=== PATIENT | male | born 1955 | race Caucasian/White ===

== ENCOUNTER 2017-06-21 11:29 | Emergency (ER) | payer OTHER ==
[2017-06-21 11:30] VITALS: BP 156/72; PULSE 82; RESP 16; TEMP 98.1; O2SAT 99
[2017-06-21] MEDS ORDERED: AMLO10TA2 PO (13:11)
[2017-06-21] MEDS ORDERED: [UNRECOGNIZED DRUG - OTHER] PO (13:11)
--- NOTE | 2017-06-21 15:19 | PD ---
HPI Chief Complaint: Musculoskeletal Complaint Time Seen by Provider: 13:03 Travel History International Travel<30 days: No Contact w/Intl Traveler<30days: No Traveled to known affect area: No History of Present Illness HPI The patient's 61 years old and arrives to the ER because his primary care office nursing staff advised him to do so. He was seen today by Dr. Olmos because he might have a pathologic fracture left humerus. He arrives with orders for PET scan, bone scan and CT of the chest abdomen pelvis to rule out metastatic disease. Patient reports constant pain in left humerus worse with range of motion, particularly at the left shoulder. He's had no fever. He reports generalized joint pain/musculoskeletal pain which is chronic and he believes might be related to rheumatoid disease however is unsure. He has no shortness of breath or chest pain. Allergies-Medications (Allergen,Severity, Reaction): Coded Allergies: No Known Allergies (Verified Allergy, Unknown, 06/21/17) Reported Meds & Prescriptions Reported Meds & Active Scripts Active Reported [Benzepine] 40 Mg PO DAILY Amlodipine (Amlodipine Besylate) 10 Mg Tab 10 Mg PO DAILY Review of Systems Except as stated in HPI: all other systems reviewed are Neg General / Constitutional: No: Fever Physical Exam Narrative GENERAL: 61-year-old male well-nourished well-developed SKIN: Warm and dry. HEAD: Atraumatic. Normocephalic. EYES: Pupils equal and round. No scleral icterus. No injection or drainage. ENT: No nasal bleeding or discharge. Mucous membranes pink and moist. NECK: Trachea midline. No JVD. CARDIOVASCULAR: Regular rate and rhythm. RESPIRATORY: No accessory muscle use. Clear to auscultation. Breath sounds equal bilaterally. GASTROINTESTINAL: Abdomen soft, non-tender, nondistended. Hepatic and splenic margins not palpable. MUSCULOSKELETAL: There is some atrophic changes the left upper extremity with amputation of the distal phalanges in keeping with history of scleroderma. NEUROLOGICAL: Awake and alert. No obvious cranial nerve deficits. Motor grossly within normal limits. Five out of 5 muscle strength in the arms and legs. Normal speech. PSYCHIATRIC: Appropriate mood and affect; insight and judgment normal. Data Data Last Documented VS Vital Signs Date Time Temp Pulse Resp B/P (MAP) Pulse Ox O2 Delivery O2 Flow Rate FiO2 06/21/17 11:30 98.1 82 16 156/72 (100) 99 Orders Orders Ed Discharge Order (06/21/17 15:19) [facility] Medical Screen Exam Complete: Yes Emergency Medical Condition: Yes Narrative Course The patient has concern for pathologic fracture of the left humerus. He arrives with the cancer screen workup request written on his primary care provider's letterhead. The patient has no acute disease and does not require inpatient admission. This nonemergent outpatient workup does not need to be done today. We discussed follow-up options. The patient verbalized understanding. Medical screening exam is considered the best option for this patient who has received nothing from today's visit aside from clarification of the appropriate follow-up which is not limited to that provided by his primary care provider. Primary Impression: Encounter for medical screening examination Referrals: Panfilo Piper MD call for appointment Jeff Espinoza MD call for appointment Med/Other Pt SpecificInfo: No Change to Meds Disposition: 01 DISCHARGE HOME Condition: Stable Noel Saenz MD Jun 21, 2017 15:18
== END 2017-06-21 15:35 | disposition left against medical advice (07) ==
LOC: NEPK 11:29 → NETRI 15:35
DX: M79.602 Pain in left arm (principal)
CPT/HCPCS: 99281

== ENCOUNTER 2017-08-24 06:36 | Day surgery (SDC) | payer OTHER ==
[~2017-08-24] VITALS: Ht 167.6 cm; Wt 88.6 kg
[~2017-08-24 06:36] MED LIST: AMLO10TA2 PO; [UNRECOGNIZED DRUG - OTHER] PO
[2017-08-24 06:53] VITALS: BP 136/69; PULSE 70; RESP 20; TEMP 98.3; O2SAT 98
[2017-08-24] MEDS ORDERED: POVIDONE IODINE 5% (ANTISEPSIS KIT) 4 APPLICATIONS EACH NARE SCH (07:00)
[2017-08-24] MEDS ORDERED: CHLORHEXIDINE GLUCONATE 2 % 1 PACK (2 CLOTHS) TOPICAL SCH (07:00)
[2017-08-24] MEDS ORDERED: SODIUM CHLORIDE 0.9% 1000 ML IV SCH (07:00)
[2017-08-24] MEDS ORDERED: ceFAZolin 2 GM PREMIX 50 ML - implanted port/tunneled catheter insertion IV SCH (07:00)
[2017-08-24 07:32] LABS: AUTOMATED NEUTROPHIL # 4.6 TH/MM3 (1.8-7.7); BASOPHIL # 0.1 TH/MM3 (0-0.2); BASOPHIL % 1.2 % (0.0-2.0); EOSINOPHIL # 0.5 TH/MM3 (0-0.4); HEMATOCRIT 37.7 % (39.0-51.0); HEMOGLOBIN 13.5 GM/DL (13.0-17.0); LYMPH % 12.2 % (9.0-44.0); LYMPHOCYTE # 0.8 TH/MM3 (1.0-4.8); MEAN CELL VOLUME 87.7 FL (80.0-100.0); MEAN CORPUSCULAR HEMOGLOBIN 31.4 PG (27.0-34.0); MEAN CORPUSCULAR HGB CONC 35.8 % (32.0-36.0); MEAN PLATELET VOLUME 7.6 FL (7.0-11.0); MONO % 9.1 % (0.0-8.0); MONOCYTE # 0.6 TH/MM3 (0-0.9); NEUT % 70.5 % (16.0-70.0); PLATELET COUNT 233 TH/MM3 (150-450); RED CELL DISTRIBUTION WIDTH 13.6 % (11.6-17.2); WHITE BLOOD COUNT 6.6 TH/MM3 (4.0-11.0)
[2017-08-24 07:33] LABS: INTERNATIONAL NORMALIZED RATIO 1.1 RATIO; PROTHROMBIN TIME - PATIENT 10.7 SEC (9.8-11.6)
[2017-08-24] MEDS: VANCOMYCIN 1000 MG/NS 250 ML - implanted port/tunneled catheter IV SCH ×4 (07:40→08:53)
[2017-08-24] MEDS ORDERED: LIDOCAINE 1%/EPINEPHrine 1:100,000 SOLN 30 ML VIAL ONE ×2 (08:07→08:39)
[2017-08-24] MEDS ORDERED: fentaNYL CITRATE 250 MCG/5 ML AMP ONE (08:36)
[2017-08-24] MEDS ORDERED: MIDAZOLAM HCL 5 MG/5 ML VIAL ONE (08:36)
[2017-08-24 09:50] VITALS: BP 123/57; PULSE 54; RESP 18; TEMP 98; O2SAT 97
[2017-08-24] MEDS ORDERED: SODIUM CHLORIDE 0.9% FLUSH 10 ML FLUSH IVF PRN ×2 (10:00→10:15)
--- NOTE | 2017-08-24 10:01 | PD.RAD ---
Post Procedure Progress Note Pre Procedure Diagnosis: (1) Lung cancer Post Procedure Diagnosis: (1) Lung cancer Procedure Date: Aug 24, 2017 Supervising Radiologist: Rudy Hayden Proceduralist/Assist: RT Jose Carlos(R) Anesthesia: Local, Conscious Sedation Plan of Activity Patient to Unit: ROPU Patient Condition: Good See PACS Report for procedural detail/treatment Central Venous Access Device Procedure 1 Right Internal Jugular Infusaport Placement single lumen Swedish: 8 Rudy Hayden MD Aug 24, 2017 10:01
--- NOTE | 2017-08-24 10:03 | RADRPT ---
EXAM DATE/TIME: 08/24/2017 08:17 [facility] COMPARISON: No previous studies available for comparison. INDICATIONS : Patient with history of lung cancer with bone metastases in need of [id number] placement. MEDICAL HISTORY : HTN, Collagen vascular disease, Scleroderma, Raynauds phenomenon, Pathologic left humerus fracture, L concetta lesion SURGICAL HISTORY : Left humerus intramedullary nailing and tumor biopsy ENCOUNTER: Initial ACUITY: 2 weeks PAIN SCORE: 0/10 FLUORO TIME: 0.4 minutes IMAGE SERIES: 1 SEDATION TIME: 30 minutes ACCESS: Right internal jugular vein SEDATION: 1.) 4 mg midazolam (Versed) IV 2.) 200 mcg fentanyl (Sublimaze) IV Prophylactic antibiotics were administered with appropriate pre-procedure timing. Vancomycin within 2 hours of procedure, Ancef (or alternative) within 1 hour of procedure. DEVICE: 1. 8 [place] single lumen Bard Power Port PROCEDURE : 1. Continuous pulse oximetry and EKG monitoring. 2. Intravenous conscious sedation. 3. Ultrasound guidance for venous access. 4. Fluoroscopic guided implantable central venous port placement. The patient was placed supine. The neck was prepped in sterile fashion. Full sterile technique was u sed, including cap, mask, sterile gloves and gown, and a large sterile sheet. Hand hygiene and 2% ch lorhexidine Betadine was utilized per protocol for cutaneous antisepsis with appropriate dry time for site. Sterile gel and sterile probe cover were utilized for ultrasound guidance. The skin and sub cutaneous tissues were infiltrated with local anesthetic solution. Under direct ultrasound guidance, central venous access was accomplished in the targeted vessel. The ultrasound images depicting access guidance were stored and saved to PACS for permanent record. A s ubcutaneous pocket was created using blunt dissection. The port was introduced to the pocket. The c atheter tubing was fed through a subcutaneous tunnel to the venotomy site. The catheter tubing was c ut to a suitable length and then was introduced through a valved Peel-Away sheath and positioned with catheter tubing tip at the cavo-atrial junction level. The pocket incision was closed with subcutic ular Vicryl suture. Steri-Strips were applied. The port was flushed and locked with heparin solutio n per protocol. Sterile dressing was applied to the site. The patient tolerated the procedure well. Conscious sedation was performed with the prescribed dosages and duration as above in the presence of an independent trained radiology nurse to assist in the monitoring of the patient. EKG and oximetry remained stable throughout the procedure. The patient tolerated the procedure well and there were no complications. The patient was sent to post anesthesia recovery in stable condition. CONCLUSION: Uncomplicated ultrasound and fluoroscopic guided implanted central venous port catheter placement as described in detail above. An 8 Northern Irish Power port was placed. Rudy Hayden MD on August 24, 2017 at 10:02 Board Certified Radiologist. This report was verified electronically.
[2017-08-24 10:05] VITALS: BP 122/62; PULSE 90; RESP 20; O2SAT 95
[2017-08-24 10:20] VITALS: BP 117/63; PULSE 65; RESP 20; O2SAT 95
[2017-08-24 11:00] VITALS: BP 120/56; PULSE 67; RESP 20; O2SAT 96
[2017-08-24 11:40] VITALS: BP 124/78; PULSE 63; RESP 20; O2SAT 94
== END 2017-08-24 12:00 | disposition home or self-care (01) ==
LOC: HROP 06:36 → HRIP 06:37 → HROP 12:00
PROVIDERS: ATTEND Internal Medicine Hematology & Oncology
DX: Z45.2 Encounter for adjustment and management of vascular access device (principal); Z85.118 Personal history of other malignant neoplasm of bronchus and lung; C79.51 Secondary malignant neoplasm of bone; I10 Essential (primary) hypertension; I73.00 Raynaud's syndrome without gangrene; I99.9 Unspecified disorder of circulatory system
CPT/HCPCS: 36561; 76937; 77001; 85025; 85610; 85730; 99152; 99153; C1788; J0690; J1642; J2250; J3010; J3370; J7030; J7050

== ENCOUNTER 2017-10-14 11:40 | Inpatient (IN) | payer OTHER, MEDICARE ==
[2017-10-14] VITALS (7 sets, daily range): BP systolic 116–209; BP diastolic 57–80; PULSE 60–110; RESP 16–22; TEMP 98.1–98.7; O2SAT 95–100
[~2017-10-14] VITALS: Ht 170.2 cm; Wt 80.9 kg
[2017-10-14 12:24] LABS: AUTOMATED NEUTROPHIL # 4.4 TH/MM3 (1.8-7.7); BASOPHIL # 0.1 TH/MM3 (0-0.2); BASOPHIL % 0.9 % (0.0-2.0); EOSINOPHIL # 0.1 TH/MM3 (0-0.4); EOSINOPHIL % 1.8 % (0.0-4.0); HEMATOCRIT 38.2 % (39.0-51.0); HEMOGLOBIN 13.4 GM/DL (13.0-17.0); LYMPHOCYTE # 0.7 TH/MM3 (1.0-4.8); MEAN CELL VOLUME 91.3 FL (80.0-100.0); MEAN CORPUSCULAR HEMOGLOBIN 31.9 PG (27.0-34.0); MEAN PLATELET VOLUME 7.7 FL (7.0-11.0); MONO % 15.4 % (0.0-8.0); NEUT % 70.9 % (16.0-70.0); PLATELET COUNT 208 TH/MM3 (150-450); RED BLOOD COUNT 4.18 MIL/MM3 (4.50-5.90); RED CELL DISTRIBUTION WIDTH 14.3 % (11.6-17.2); WHITE BLOOD COUNT 6.2 TH/MM3 (4.0-11.0)
--- NOTE | 2017-10-14 12:28 | PD ---
HPI Chief Complaint: Edema Time Seen by Provider: 11:51 Travel History International Travel<30 days: No Contact w/Intl Traveler<30days: No Traveled to known affect area: No History of Present Illness HPI 61-year-old male with history of metastatic adenosquamous carcinoma of the lung , currently treated with Keytruda, presents for evaluation of left lower extremity edema. Symptoms started 1 week ago. The swelling has worsened this is what prompted evaluation. He reports associated pain in the left calf which is a tightness and is worse when walking. He reports that he has had some mild dyspnea for the past 2 days which she relates to nasal congestion. He denies chest pain, abdominal pain, nausea or vomiting, diaphoresis, dizziness, lightheadedness. No history of DVT or PE. He has no other complaints at this time. PFSH Past Medical History Cancer: Yes (stage 4 lung cancer with mets to left humerus) Cardiovascular Problems: Yes Chemotherapy: Yes (Q 3 weeks) Diabetes: No Endocrine: No Hiatal Hernia: No Hypertension: Yes Immune Disorder: No Implanted Vascular Access Dvce: Yes (port right chest) Medical other: Yes (scleroderma) Musculoskeletal: Yes (arhritis) Neurologic: Yes (raynauds dissease) Reproductive: No Respiratory: No Radiation Therapy: Yes (last in August) Thyroid Disease: No Past Surgical History AICD: No Joint Replacement: No Pacemaker: No Other Surgery: Yes (port placement) Social History Alcohol Use: Yes (occasional) Tobacco Use: Yes (1ppd) Substance Use: No Allergies-Medications (Allergen,Severity, Reaction): Coded Allergies: No Known Allergies (Verified Allergy, Unknown, 06/21/17) Reported Meds & Prescriptions Reported Meds & Active Scripts Active Reported [Benzepine] 40 Mg PO DAILY Amlodipine (Amlodipine Besylate) 10 Mg Tab 10 Mg PO DAILY Review of Systems Except as stated in HPI: all other systems reviewed are Neg Physical Exam Narrative GENERAL: Well-developed well-nourished male no acute distress SKIN: Warm and dry. HEAD: Atraumatic. Normocephalic. EYES: Pupils equal and round. No scleral icterus. No injection or drainage. ENT: No nasal bleeding or discharge. Mucous membranes pink and moist. NECK: Trachea midline. No JVD. CARDIOVASCULAR: Regular rate and rhythm. No murmur appreciated. RESPIRATORY: No accessory muscle use. Clear to auscultation. Breath sounds equal bilaterally. GASTROINTESTINAL: Abdomen soft, non-tender, nondistended. Hepatic and splenic margins not palpable. MUSCULOSKELETAL: 2+ pedal and tibial edema on the left lower extremity. 2+ dorsalis pedis pulse. NEUROLOGICAL: Awake and alert. No obvious cranial nerve deficits. Motor grossly within normal limits. Normal speech. Data Data Last Documented VS Vital Signs Date Time Temp Pulse Resp B/P (MAP) Pulse Ox O2 Delivery O2 Flow Rate FiO2 10/14/17 14:00 81 22 154/80 (104) 95 Room Air 10/14/17 11:45 98.3 Orders Orders Us Leg Venous Doppler (10/14/17 12:00) Electrocardiogram (10/14/17 12:00) Basic Metabolic Panel (Bmp) (10/14/17 12:00) Complete Blood Count With Diff (10/14/17 12:00) Magnesium (Mg) (10/14/17 12:00) Prothrombin Time / Inr (Pt) (10/14/17 12:00) Act Partial Throm Time (Ptt) (10/14/17 12:00) Ecg Monitoring (10/14/17 12:00) Bilateral Bp Monitoring (10/14/17 12:00) Iv Access Insert/Monitor (10/14/17 12:00) Ct Pulmonary Angiogram (10/14/17 12:00) Troponin I (10/14/17 12:03) Creatine Kinase (Cpk) (10/14/17 12:03) Thyroid Stimulating Hormone (10/14/17 12:03) Free T3 (10/14/17 13:36) Free Thyroxine (T4) (10/14/17 13:36) Iohexol 350 Inj (Omnipaque 350 Inj) (10/14/17 13:56) Ondansetron Inj (Zofran Inj) (10/14/17 14:30) Admit Order (Ed Use Only) (10/14/17 14:40) Labs Laboratory Tests Test 10/14/17 12:04 White Blood Count 6.2 TH/MM3 Red Blood Count 4.18 MIL/MM3 Hemoglobin 13.4 GM/DL Hematocrit 38.2 % Mean Corpuscular Volume 91.3 FL Mean Corpuscular Hemoglobin 31.9 PG Mean Corpuscular Hemoglobin Concent 35.0 % Red Cell Distribution Width 14.3 % Platelet Count 208 TH/MM3 Mean Platelet Volume 7.7 FL Neutrophils (%) (Auto) 70.9 % Lymphocytes (%) (Auto) 11.0 % Monocytes (%) (Auto) 15.4 % Eosinophils (%) (Auto) 1.8 % Basophils (%) (Auto) 0.9 % Neutrophils # (Auto) 4.4 TH/MM3 Lymphocytes # (Auto) 0.7 TH/MM3 Monocytes # (Auto) 1.0 TH/MM3 Eosinophils # (Auto) 0.1 TH/MM3 Basophils # (Auto) 0.1 TH/MM3 CBC Comment DIFF FINAL Differential Comment Prothrombin Time 11.3 SEC Prothromb Time International Ratio 1.1 RATIO Activated Partial Thromboplast Time 28.8 SEC Blood Urea Nitrogen 8 MG/DL Creatinine 0.51 MG/DL Random Glucose 111 MG/DL Calcium Level 9.0 MG/DL Magnesium Level 1.5 MG/DL Sodium Level 138 MEQ/L Potassium Level 3.4 MEQ/L Chloride Level 106 MEQ/L Carbon Dioxide Level 23.6 MEQ/L Anion Gap 8 MEQ/L Estimat Glomerular Filtration Rate 166 ML/MIN Total Creatine Kinase 63 U/L Troponin I LESS THAN 0.02 NG/ML Free Thyroxine 3.20 NG/DL Free Triiodothyronine (T3) pg/dL 7.21 PG/ML Thyroid Stimulating Hormone 3rd Gen LESS THAN 0.005 uIU/ML MDM Medical Decision Making Medical Screen Exam Complete: Yes Emergency Medical Condition: Yes Medical Record Reviewed: Yes Differential Diagnosis DVT, cellulitis, lymphedema, dependent edema, pulmonary embolism, malignancy Narrative Course The patient was placed on ECG monitoring pulse oximetry. 12-lead EKG was obtained revealing atrial fibrillation with a rate of 84. The patient has no known history of atrial fibrillation. Lab work, left lower extremity ultrasound , CT pulmonary angiogram is been ordered. CT pulmonary angiogram reveals CONCLUSION: 1. No pulmonary embolus or acute infiltrate. 2. Isolated 8-9 mm nodule in the perifissural distribution of the right upper lobe. Recommend followup CT scan of the chest in 6 months to ensure stability. 3. Probable pleural-parenchymal scarring laterally in the right lower lobe. Ultrasound of both lower extremities negative. CBC is unremarkable. BMP reveals potassium 3.4 otherwise unremarkable. TSH is less than 0.005. Free T4 is 3.2, free T3 is 7.21. The patient has new thyrotoxicosis as well as new onset atrial fibrillation of undetermined etiology, potentially related to his oncology treatment. He will be admitted for further evaluation and treatment. Diagnosis Primary Impression: Thyrotoxicosis Additional Impression: New onset atrial fibrillation Admitting Information Admitting Physician Requests: Admit Casimiro Newman Oct 14, 2017 12:28
[2017-10-14 12:30] LABS: INTERNATIONAL NORMALIZED RATIO 1.1 RATIO; PROTHROMBIN TIME - PATIENT 11.3 SEC (9.8-11.6)
[2017-10-14 12:47] LABS: BICARBONATE 23.6 MEQ/L (21.0-32.0); CREATININE 0.51 MG/DL (0.60-1.30); MAGNESIUM 1.5 MG/DL (1.5-2.5)
[2017-10-14 12:56] LABS: TROPONIN I LESS THAN 0.02 NG/ML (0.02-0.05)
--- NOTE | 2017-10-14 13:28 | RADRPT ---
EXAM DATE/TIME: 10/14/2017 12:53 [facility] COMPARISON: No previous studies available for comparison. INDICATIONS : Left leg pain. MEDICAL HISTORY : Hypertension. Rayanauds disease. Arthritis. Lung cancer. Chemotherapy. Radiation therapy. SURGICAL HISTORY : Right arm titanium priyank. Port placement. ENCOUNTER: Initial ACUITY: 1 week PAIN SCORE: 3/10 LOCATION: Left leg. TECHNIQUE: Venous ultrasound of the leg was performed from the inguinal ligament to the proximal calf. Real-hector e, color Doppler and spectral tracing, compression and augmentation techniques were used. FINDINGS: There is normal compressibility of the deep venous system from the inguinal region to the proximal ca lf. No echogenic clot is seen in the lumen of the common femoral, femoral, popliteal, and posterior tibial veins. There is a normal response of the venous system to proximal and distal augmentation an d respiration. CONCLUSION: Negative exam. No sonographic or Doppler findings of deep venous thrombosis. Mahendra Cardenas MD on October 14, 2017 at 13:25 Board Certified Radiologist. This report was verified electronically.
[2017-10-14] MEDS ORDERED: IOHEXOL 350 MG/ML 10 ML VIAL (for RAD DIAG) IVCONTRAST ONE (13:56)
[2017-10-14 14:03] LABS: FREE T3 7.21 PG/ML (2.18-3.98); FREE T4 3.2 NG/DL (0.76-1.46)
--- NOTE | 2017-10-14 14:12 | PD ---
Physical Exam Narrative I, Dr. Ramirez, have reviewed the advance practice practitioner's documentation and am in agreement, met with the patient face to face, made the diagnosis, and the medical decision making was done by me. *My assessment and Findings: DVT vs. lymphengitis vs. PE vs. new onset afib 61yo M with metastatic lung CA on immunotherapy here with left leg pain and swelling. Pt also said he feels a little sob. EKG showed afib at 84bpm. This is new for patient. Labs reviewed, no leukocytosis. H/H normal. TSH low, so free T4 and free T3 ordered which are elevated. Free T3 and T4 elevated. Pt may be in afib because of hyperthyroidism. Troponin negative. US left leg negative. CT angio showed no PE or acute infiltrate. Isolated lung nodule. Pt has metastatic lung CA. Pt admitted for new onset afib, hyperthyroidism. Data Data Last Documented VS Vital Signs Date Time Temp Pulse Resp B/P (MAP) Pulse Ox O2 Delivery O2 Flow Rate FiO2 10/14/17 14:00 81 22 154/80 (104) 95 Room Air 10/14/17 11:45 98.3 Orders Orders Us Leg Venous Doppler (10/14/17 12:00) Electrocardiogram (10/14/17 12:00) Basic Metabolic Panel (Bmp) (10/14/17 12:00) Complete Blood Count With Diff (10/14/17 12:00) Magnesium (Mg) (10/14/17 12:00) Prothrombin Time / Inr (Pt) (10/14/17 12:00) Act Partial Throm Time (Ptt) (10/14/17 12:00) Ecg Monitoring (10/14/17 12:00) Bilateral Bp Monitoring (10/14/17 12:00) Iv Access Insert/Monitor (10/14/17 12:00) Ct Pulmonary Angiogram (10/14/17 12:00) Troponin I (10/14/17 12:03) Creatine Kinase (Cpk) (10/14/17 12:03) Thyroid Stimulating Hormone (10/14/17 12:03) Free T3 (10/14/17 13:36) Free Thyroxine (T4) (10/14/17 13:36) Iohexol 350 Inj (Omnipaque 350 Inj) (10/14/17 13:56) Ondansetron Inj (Zofran Inj) (10/14/17 14:30) Admit Order (Ed Use Only) (10/14/17 14:40) Labs Laboratory Tests Test 10/14/17 12:04 White Blood Count 6.2 TH/MM3 Red Blood Count 4.18 MIL/MM3 Hemoglobin 13.4 GM/DL Hematocrit 38.2 % Mean Corpuscular Volume 91.3 FL Mean Corpuscular Hemoglobin 31.9 PG Mean Corpuscular Hemoglobin Concent 35.0 % Red Cell Distribution Width 14.3 % Platelet Count 208 TH/MM3 Mean Platelet Volume 7.7 FL Neutrophils (%) (Auto) 70.9 % Lymphocytes (%) (Auto) 11.0 % Monocytes (%) (Auto) 15.4 % Eosinophils (%) (Auto) 1.8 % Basophils (%) (Auto) 0.9 % Neutrophils # (Auto) 4.4 TH/MM3 Lymphocytes # (Auto) 0.7 TH/MM3 Monocytes # (Auto) 1.0 TH/MM3 Eosinophils # (Auto) 0.1 TH/MM3 Basophils # (Auto) 0.1 TH/MM3 CBC Comment DIFF FINAL Differential Comment Prothrombin Time 11.3 SEC Prothromb Time International Ratio 1.1 RATIO Activated Partial Thromboplast Time 28.8 SEC Blood Urea Nitrogen 8 MG/DL Creatinine 0.51 MG/DL Random Glucose 111 MG/DL Calcium Level 9.0 MG/DL Magnesium Level 1.5 MG/DL Sodium Level 138 MEQ/L Potassium Level 3.4 MEQ/L Chloride Level 106 MEQ/L Carbon Dioxide Level 23.6 MEQ/L Anion Gap 8 MEQ/L Estimat Glomerular Filtration Rate 166 ML/MIN Total Creatine Kinase 63 U/L Troponin I LESS THAN 0.02 NG/ML Free Thyroxine 3.20 NG/DL Free Triiodothyronine (T3) pg/dL 7.21 PG/ML Thyroid Stimulating Hormone 3rd Gen LESS THAN 0.005 uIU/ML MDM Supervised Visit with JEYSON: Yes Interpretation(s) EKG: Afib at 84bpm. Normal axis. No ST segment elevation or depression. Diagnosis Primary Impression: New onset a-fib Admitting Information Admitting Physician Requests: Admit Nilam Ramirez DO Oct 14, 2017 14:12
--- NOTE | 2017-10-14 14:13 | RADRPT ---
EXAM DATE/TIME: 10/14/2017 13:30 [facility] COMPARISON: No previous studies available for comparison. INDICATIONS : left leg swelling,SOB. IV CONTRAST: 75 cc Omnipaque 350 (iohexol) IV RADIATION DOSE: 20.11 CTDIvol (mGy) MEDICAL HISTORY : Carcinoma, lung. Cardiovascular disease Hypertension.Immunotherapyx2, Raynauds, left humerus mets, fr acture SURGICAL HISTORY : Pin left arm.Chemo, Rad tx, port ENCOUNTER: Initial ACUITY: 1 week PAIN SCALE: 4/10 LOCATION: chest TECHNIQUE: Volumetric scanning of the chest was performed using a pulmonary embolism protocol MIP images were re constructed. Using automated exposure control and adjustment of the mA and/or kV according to patien t size, radiation dose was kept as low as reasonably achievable to obtain optimal diagnostic quality images. DICOM format image data is available electronically for review and comparison. Follow-up recommendations for detected pulmonary nodules are based at a minimum on nodule size and pa tient risk factors according to Fleischner Society Guidelines. FINDINGS: PULMONARY ARTERIES: No filling defects are seen in the pulmonary arteries through the segmental level. LUNGS: Isolated 8-9 mm nodule in a basilar segment of the right upper lobe. Probable rectal scarring lateral ly in the right base. Lungs are otherwise clear PLEURAE: Small left and a tiny right-sided effusion. MEDIASTINUM: There is good visualization of the great vessels of the middle mediastinum. No evidence of mediastin al or hilar adenopathy/mass. Atherosclerotic calcification of the coronary arteries MUSCULOSKELETAL: Within normal limits for patient age. MISCELLANEOUS: The visualized upper abdominal organs demonstrate no acute abnormality. CONCLUSION: 1. No pulmonary embolus or acute infiltrate. 2. Isolated 8-9 mm nodule in the perifissural distribution of the right upper lobe. Recommend followu p CT scan of the chest in 6 months to ensure stability. 3. Probable pleural-parenchymal scarring laterally in the right lower lobe. Mahendra Cardenas MD on October 14, 2017 at 14:08 Board Certified Radiologist. This report was verified electronically.
[2017-10-14] MEDS ORDERED: ONDANSETRON HCL 4 MG/2 ML VIAL IV PUSH ONE (14:30)
[2017-10-14] MEDS ORDERED: NALOXONE HCL 0.4 MG/ML AMP IV PUSH PRN (15:00)
[2017-10-14] MEDS ORDERED: ENALAPRILAT 2.5 MG/2 ML VIAL IV PUSH PRN (15:00)
[2017-10-14] MEDS ORDERED: LACTULOSE SYRUP 20 GM/30 ML CUP PO PRN (15:00)
[2017-10-14] MEDS ORDERED: SODIUM CHLORIDE 0.9% FLUSH 10 ML FLUSH IV FLUSH PRN (15:00)
[2017-10-14] MEDS ORDERED: SENNOSIDES 8.6 MG TAB PO PRN (15:00)
[2017-10-14] MEDS ORDERED: MAGNESIUM HYDROXIDE SUSP 30 ML CUP PO PRN (15:00)
[2017-10-14] MEDS ORDERED: BISACODYL 10 MG SUPP RECTAL PRN (15:00)
[2017-10-14] MEDS ORDERED: ONDANSETRON HCL 4 MG/2 ML VIAL IVP PRN (15:00)
[2017-10-14] MEDS ORDERED: ACETAMINOPHEN 325 MG TAB PO PRN (15:00)
[2017-10-14] MEDS ORDERED: POTASSIUM CHLORIDE 10 MEQ CONTROLLED RELEASE TAB PO ONE (15:00)
--- NOTE | 2017-10-14 15:31 | HHI.HP ---
HPI Service [facility] Primary Care Physician Panfilo Olmos M.D. Admission Diagnosis New onset atrial fibrillation, thyrotoxicosis Diagnoses: Chief Complaint: edema, tachycardia Travel History International Travel<30 Days: No Contact w/Intl Traveler <30 Da: No Traveled to Known Affected Are: No History of Present Illness The patient is a very pleasant unfortunate 61-year-old male with history of metastatic adenosquamous carcinoma of the lung, currently treated with Keytruda , presents for evaluation of left lower extremity edema. Symptoms started 1 week ago. The swelling has worsened this is what prompted evaluation. He reports associated pain in the left calf which is a tightness and is worse when walking. He reports that he has had some mild dyspnea for the past 2 days which she relates to nasal congestion. He denies chest pain, abdominal pain, nausea or vomiting, diaphoresis, dizziness, lightheadedness. No history of DVT or PE. He has no other complaints at this time. Main complaint is swelling of his legs, left leg worse x 1 week worsening. Also with sob No palpitations, cp, diaphoresis. Follows with Dr. 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 Sister at the age of 40 for sudden myocardial infarction. Social History Mr. Boyer is and he is a disabled. He is a daily smoker who has smoked 1 PPD for 45 years. He is an active drinker.He consumes 4 drinks/day 7 days/week Lives at home with his . Physical Exam Vital Signs Vital Signs Date Time Temp Pulse Resp B/P (MAP) Pulse Ox O2 Delivery O2 Flow Rate FiO2 10/14/17 14:00 81 22 154/80 (104) 95 Room Air 10/14/17 11:58 85 22 149/74 (99) 98 Room Air 10/14/17 11:45 98.3 110 20 209/79 (122) 100 Physical Exam GENERAL: This is a well-nourished, well-developed patient, in no apparent distress. SKIN: No rashes, ecchymoses or lesions. Cool and dry. HEAD: Atraumatic. Normocephalic. No temporal or scalp tenderness. EYES: Pupils equal round and reactive. Extraocular motions intact. No scleral icterus. No injection or drainage. ENT: Nose without bleeding, purulent drainage or septal hematoma. Throat without erythema, tonsillar hypertrophy or exudate. Uvula midline. Airway patent. NECK: Trachea midline. No JVD or lymphadenopathy. Supple, nontender, no meningeal signs. CARDIOVASCULAR: Irregular rate and rhythm without murmurs, gallops, or rubs. RESPIRATORY: Clear to auscultation. Breath sounds equal bilaterally. No wheezes , rales, or rhonchi. GASTROINTESTINAL: Abdomen soft, non-tender, nondistended. No hepato-splenomegaly , or palpable masses. No guarding. MUSCULOSKELETAL: Extremities without clubbing, cyanosis, or edema. No joint tenderness, effusion, or edema noted. No calf tenderness. Negative Homans sign bilaterally. NEUROLOGICAL: Awake and alert. Cranial nerves II through XII intact. Motor and sensory grossly within normal limits. Five out of 5 muscle strength in all muscle groups. Normal speech. Laboratory Laboratory Tests Test 10/14/17 12:04 White Blood Count 6.2 Red Blood Count 4.18 Hemoglobin 13.4 Hematocrit 38.2 Mean Corpuscular Volume 91.3 Mean Corpuscular Hemoglobin 31.9 Mean Corpuscular Hemoglobin Concent 35.0 Red Cell Distribution Width 14.3 Platelet Count 208 Mean Platelet Volume 7.7 Neutrophils (%) (Auto) 70.9 Lymphocytes (%) (Auto) 11.0 Monocytes (%) (Auto) 15.4 Eosinophils (%) (Auto) 1.8 Basophils (%) (Auto) 0.9 Neutrophils # (Auto) 4.4 Lymphocytes # (Auto) 0.7 Monocytes # (Auto) 1.0 Eosinophils # (Auto) 0.1 Basophils # (Auto) 0.1 CBC Comment DIFF FINAL Differential Comment Prothrombin Time 11.3 Prothromb Time International Ratio 1.1 Activated Partial Thromboplast Time 28.8 Blood Urea Nitrogen 8 Creatinine 0.51 Random Glucose 111 Calcium Level 9.0 Magnesium Level 1.5 Sodium Level 138 Potassium Level 3.4 Chloride Level 106 Carbon Dioxide Level 23.6 Anion Gap 8 Estimat Glomerular Filtration Rate 166 Total Creatine Kinase 63 Troponin I LESS THAN 0.02 Free Thyroxine 3.20 Free Triiodothyronine (T3) pg/dL 7.21 Thyroid Stimulating Hormone 3rd Gen LESS THAN 0.005 Result Diagram: 10/14/17 1204 10/14/17 1204 Imaging Last Impressions Lower Extremity Ultrasound 10/14/17 1200 Signed Impressions: Service Date/Time: Saturday, October 14, 2017 12:53 - CONCLUSION: Negative exam. No sonographic or Doppler findings of deep venous thrombosis. Mahendra Cardenas MD CT Angiography 10/14/17 1200 Signed Impressions: Service Date/Time: Saturday, October 14, 2017 13:30 - CONCLUSION: 1. No pulmonary embolus or acute infiltrate. 2. Isolated 8-9 mm nodule in the perifissural distribution of the right upper lobe. Recommend followup CT scan of the chest in 6 months to ensure stability. 3. Probable pleural-parenchymal scarring laterally in the right lower lobe. MD Erik Doei VTE Risk Assessment Caprini VTE Risk Assessment: Mod/High Risk (score >= 2) Caprini Risk Assessment Model Point Value = 1 Point Value = 2 Point Value = 3 Point Value = 5 Age 41-60 Minor surgery BMI > 25 kg/m2 Swollen legs Varicose veins or History of unexplained or recurrent spontaneous Oral contraceptives or hormone replacement Sepsis (< 1 month) Serious lung disease, including pneumonia (< 1 month) Abnormal pulmonary function Acute myocardial infarction Congestive heart failure (< 1 month) History of inflammatory bowel disease Medical patient at bed rest Age 61-74 Arthroscopic surgery Major open surgery (> 45 min) Laparoscopic surgery (> 45 min) Malignancy Confined to bed (> 72 hours) Immobilizing plaster cast Central venous access Age >= 75 History of VTE Family history of VTE Factor V Leiden Prothrombin [id number] Lupus anticoagulant Anticardiolipin antibodies Elevated serum homocysteine Heparin-induced thrombocytopenia Other congenital or acquired thrombophilia Stroke (< 1 month) Elective arthroplasty Hip, pelvis, or leg fracture Acute spinal cord injury (< 1 month) Prophylaxis Regimen Total Risk Factor Score Risk Level Prophylaxis Regimen 0-1 Low Early ambulation 2 Moderate Order ONE of the following: *Sequential Compression Device (SCD) *Heparin 5000 units SQ BID 3-4 Higher Order ONE of the following medications: *Heparin 5000 units SQ TID *Enoxaparin/Lovenox 40 mg SQ daily (WT < 150 kg, CrCl > 30 mL/min) *Enoxaparin/Lovenox 30 mg SQ daily (WT < 150 kg, CrCl > 10-29 mL/min) *Enoxaparin/Lovenox 30 mg SQ BID (WT < 150 kg, CrCl > 30 mL/min) AND/OR *Sequential Compression Device (SCD) 5 or more Highest Order ONE of the following medications: *Heparin 5000 units SQ TID (Preferred with Epidurals) *Enoxaparin/Lovenox 40 mg SQ daily (WT < 150 kg, CrCl > 30 mL/min) *Enoxaparin/Lovenox 30 mg SQ daily (WT < 150 kg, CrCl > 10-29 mL/min) *Enoxaparin/Lovenox 30 mg SQ BID (WT < 150 kg, CrCl > 30 mL/min) AND *Sequential Compression Device (SCD) Assessment and Plan Assessment and Plan Metastatic adenosquamous carcinoma of the lung, currently treated with Keytruda presented with Afib with RVR Thyrotoxicosis TSH< 0.05 and elevated T3 and T4 LE edema Start propranolol p.o. Monitor on telemetry Start methimazole p.o. Start IV fluids Ultrasound of lower extremities does not reveal DVT. Do 2D echo Consult hematology oncology Dr. Espinoza Resume home medications as appropriate Discussed with the patient, nurse, family at bedside, ED physician. Suzan Alanis MD Oct 14, 2017 15:31
[2017-10-14] MEDS ORDERED: MAGNESIUM OXIDE 400 MG TAB PO ONE (16:00)
[2017-10-14] MEDS ORDERED: METHIMAZOLE 5 MG TAB PO ONE (16:00)
[2017-10-14] MEDS: ENOXAPARIN SODIUM 40 MG/0.4 ML SYRINGE SQ SCH (16:48)
[2017-10-14] MEDS: SODIUM CHLOR 0.9% 1000 ML INJ 1,000 ML IV SCH ×2 (16:48→23:31)
[2017-10-14] MEDS: PROPRANOLOL HCL 10 MG TAB PO SCH ×2 (16:48→23:31)
[2017-10-14] MEDS: METHIMAZOLE 5 MG TAB PO SCH (20:21)
[2017-10-14] MEDS: SODIUM CHLORIDE 0.9% FLUSH 10 ML FLUSH IV FLUSH SCH (20:21)
[2017-10-14] MEDS: DOCUSATE SODIUM 50 MG/SENNA 8.6 MG TAB PO SCH (20:28)
[2017-10-15] VITALS (10 sets, daily range): BP systolic 118–151; BP diastolic 62–77; PULSE 65–85; RESP 16–20; TEMP 98.1–98.9; O2SAT 94–100
[2017-10-15] MEDS ORDERED: CALCIUM CARBONATE 500 MG CHEWABLE TAB CHEW ONE
--- NOTE | 2017-10-15 00:04 | EKG ---
Date Performed: 10/14/2017 Time Performed: 12:00:48 PTAGE: 61 years EKG: ATRIAL FIBRILLATION ABNORMAL RHYTHM ECG NO PREVIOUS TRACING DOCTOR: Lazaro Saenz Interpretating Date/Time 10/15/2017 00:02:58
[2017-10-15 05:44] LABS: AUTOMATED NEUTROPHIL # 5.9 TH/MM3 (1.8-7.7); BASOPHIL % 0.4 % (0.0-2.0); EOSINOPHIL % 0.6 % (0.0-4.0); HEMATOCRIT 36.5 % (39.0-51.0); HEMOGLOBIN 12.6 GM/DL (13.0-17.0); LYMPH % 5.1 % (9.0-44.0); LYMPHOCYTE # 0.4 TH/MM3 (1.0-4.8); MEAN CELL VOLUME 93.2 FL (80.0-100.0); MEAN CORPUSCULAR HEMOGLOBIN 32.1 PG (27.0-34.0); MEAN CORPUSCULAR HGB CONC 34.4 % (32.0-36.0); MEAN PLATELET VOLUME 8.5 FL (7.0-11.0); MONO % 10.6 % (0.0-8.0); MONOCYTE # 0.8 TH/MM3 (0-0.9); NEUT % 83.3 % (16.0-70.0); PLATELET COUNT 167 TH/MM3 (150-450); RED BLOOD COUNT 3.91 MIL/MM3 (4.50-5.90); RED CELL DISTRIBUTION WIDTH 14.2 % (11.6-17.2); WHITE BLOOD COUNT 7.1 TH/MM3 (4.0-11.0)
[2017-10-15 06:10] LABS: ALBUMIN 3.2 GM/DL (3.4-5.0); AST (GOT) 55 U/L (15-37); BICARBONATE 23.9 MEQ/L (21.0-32.0); BLOOD UREA NITROGEN 8 MG/DL (7-18); CALCIUM 9.1 MG/DL (8.5-10.1); CHLORIDE 105 MEQ/L (98-107); CREATININE 0.51 MG/DL (0.60-1.30); GLOMERULAR FILTRATION RATE 166 ML/MIN (>89); GLUCOSE,RANDOM 99 MG/DL (74-106); SODIUM (NA) 136 MEQ/L (136-145)
[2017-10-15 06:11] LABS: ALT (GPT) 42 U/L (12-78)
[2017-10-15 06:13] LABS: ALKALINE PHOSPHATASE 79 U/L (45-117); TOTAL BILIRUBIN ADULT 0.6 MG/DL (0.2-1.0)
--- NOTE | 2017-10-15 08:07 | PD.CONS ---
History of Present Illness Service Hematology/Oncology Consult Requested By Hospitalist Service Reason for Consult Patient with diagnosis of metastatic non-small cell lung carcinoma; presently on first-line palliative immunotherapy with Keytruda. New diagnosis of atrial fibrillation. Hyperthyroidism (new diagnosis). Watery diarrhea. Primary Care Physician Panfilo Olmos M.D. Diagnoses: History of Present Illness Chief Complaint: 1. Diarrhea; watery for the past 3 weeks. 2. Left leg swelling which is chronic. 3. Patient reports noticing palpitations. History of presenting illness: Mr. Calvin of which is a 61-year-old man well-known to me from my outpatient practice, mystified limits initially was seen by me in June 2017, he was referred to our practice because he was found to have a pathologic fracture of his left humerus which was heavily involved with metastatic malignancy. The patient underwent an open biopsy with stabilization of his left humerus. Pathologic findings were most consistent with metastatic non-small cell carcinoma of lung primary. Staging studies including CT scans of the chest abdomen and pelvis as well as PET/CT imaging revealed no definite lung primary other than a subcentimeter right perihilar lung lesion which is hypermetabolic. Patient's tumor was strongly positive for PDL 1 staining which had greater than 90% expression. The patient was initiated on palliative first-line therapy with Keytruda approximately 6 weeks ago. He also received palliative radiation to the left humerus which he completed about a month ago. The patient's symptoms of pain in the left upper extremity improved as did his ability to move and use his left arm. The patient was last seen by me about 3 weeks ago and reported complaints of diarrhea, at that time his diarrhea was mild with 2-3 bowel movements a day all of which usually occurred after he woke up in the mornings. The patient presented to [facility] emergency department last night with the above-noted complaints. He was noted to have A. fib which was new onset he was also noted to have hyperthyroidism with elevated T3 and T4 levels and a suppressed TSH level. He reports his diarrhea is also worsened and overnight alone he reports having had at least 6 or 7 bowel movements. The most recent bowel movement happened just before I walked in his room and he unfortunately was unable to make it to the bathroom due to the urgency. For management of his hyper thyroidism he has been initiated on methimazole 5 mg twice daily and he is also on propanolol as a beta-arlette for management of new onset A. fib likely related to hyperthyroidism. An echocardiogram is pending. Ultrasound Doppler studies of the lower extremity and CT angiogram of the chest reveal no evidence of venous thrombo- embolism. Review of Systems Constitutional: COMPLAINS OF: Fatigue, DENIES: Diaphoretic episodes, Fever, Weight gain, Weight loss, Chills, Dizziness, Change in appetite, Night Sweats Endocrine: DENIES: Heat/cold intolerance, Polydipsia, Polyuria, Polyphagia Eyes: DENIES: Blurred vision, Diplopia, Eye inflammation, Eye pain, Vision loss , Photosensitivity, Double Vision Ears, nose, mouth, throat: DENIES: Tinnitus, Hearing loss, Vertigo, Nasal discharge, Oral lesions, Throat pain, Hoarseness, Ear Pain, Running Nose, Epistaxis, Sinus Pain, Toothache, Odynophagia Respiratory: COMPLAINS OF: Cough, Sputum production, DENIES: Apneas, Snoring, Wheezing, Hemoptysis, Shortness of breath Cardiovascular: COMPLAINS OF: Palpitations, Dyspnea on Exertion, Lower Extremity Edema, DENIES: Chest pain, Syncope, PND, Orthopnea, Claudication Gastrointestinal: COMPLAINS OF: Diarrhea, DENIES: Abdominal pain, Black stools , Bloody stools, Constipation, Nausea, Vomiting, Difficulty Swallowing, Anorexia Genitourinary: DENIES: Sexual dysfunction, Urinary frequency, Urinary incontinence, Urgency, Hematuria, Dysuria, Nocturia, Penile Discharge, Testicular Pain, Testicular Swelling Musculoskeletal: COMPLAINS OF: Joint pain, Muscle aches, Stiffness, Back pain, DENIES: Joint Swelling, Neck pain Integumentary: DENIES: Abnormal pigmentation, Nail changes, Pruritus, Rash Hematologic/lymphatic: DENIES: Bruising, Lymphadenopathy Immunologic/allergic: DENIES: Eczema, Urticaria Neurologic: DENIES: Abnormal gait, Headache, Localized weakness, Paresthesias, Seizures, Speech Problems, Tremor, Poor Balance Psychiatric: COMPLAINS OF: Anxiety, Depression, DENIES: Confusion, Mood changes , Hallucinations, Agitation, Suicidal Ideation, Homicidal Ideation, Delusions Except as stated in HPI: all other systems reviewed are Neg Past Family Social History Allergies: Coded Allergies: No Known Allergies (Verified Allergy, Unknown, 06/21/17) Past Medical History Metastatic non-small cell carcinoma of lung primary (adenosquamous histology) Secondary metastatic disease involving the left humerus. Scleroderma Collagen vascular disease Pathologic fracture of left humerus Tobaccoism COPD Autoamputation of the fingertips Rainouts phenomenon Osteoarthritis Daily alcohol consumption Past Surgical History Cataract surgery Infusion port placement ORIF of pathologic fracture of left humerus Tonsillectomy in the remote past Active Ordered Medications Normal saline 100 cc/h Tylenol 650 mg p.o. every 4 hours as needed for fever Amlodipine 10 mg p.o. daily Dulcolax suppository 10 mg as needed for constipation Calcium carbonate 500 mg p.o. 1 Senna Colace 1 tablet p.o. twice daily Enalaprilat 2.5 mg IV every 6 hours needed for hypertension Lovenox 40 mg subcu every 24 hours Lactulose 30 mL p.o. twice daily daily as needed for severe constipation Milk of magnesia 30 mL p.o. every 12 hours significant mild constipation Methimazole 5 mg p.o. twice daily Zofran 4 mg IV every 6 hours needed for nausea and vomiting Potassium chloride 30 Meq 1 Prednisone 40 mg p.o. daily Propranolol 10 mg p.o. every 8 hours Family History Parents are both . Mother of myocardial infarction. Father of advanced age. Sister also of sudden cardiac arrest at the age of 41. Social History Patient is , he lives at home with his . He is disabled. He reports smoking about a pack a day for the past 45 years. He also reports drinking about 4 drinks a day. Physical Exam Vital Signs Vital Signs Date Time Temp Pulse Resp B/P (MAP) Pulse Ox O2 Delivery O2 Flow Rate FiO2 10/15/17 04:00 98.4 82 20 125/74 (91) 98 10/15/17 03:41 77 10/15/17 00:00 98.9 78 20 127/77 (94) 95 10/15/17 00:00 Room Air 10/14/17 23:42 93 10/14/17 20:00 Room Air 10/14/17 20:00 98.7 92 20 116/68 (84) 100 10/14/17 19:46 60 10/14/17 16:00 98.1 105 16 123/57 (79) 100 10/14/17 15:48 10/14/17 14:00 81 22 154/80 (104) 95 Room Air 10/14/17 11:58 85 22 149/74 (99) 98 Room Air 10/14/17 11:45 98.3 110 20 209/79 (174) 100 Physical Exam GENERAL: Middle-aged male, sitting up on a bedside chair, he appears to be no acute distress and has a pleasant disposition. SKIN: Changes consistent with scleroderma. HEAD: Atraumatic. Normocephalic. No temporal or scalp tenderness. EYES: Pupils equal round and reactive. Extraocular motions intact. No scleral icterus. No injection or drainage. ENT: Nose without bleeding, purulent drainage or septal hematoma. Throat without erythema, tonsillar hypertrophy or exudate. Uvula midline. Airway patent. NECK: Trachea midline. No JVD or lymphadenopathy. Supple, nontender, no meningeal signs. CARDIOVASCULAR: Irregular rhythm, he does not have increased heart rate, S1-S2 no obvious murmurs rubs gallops. RESPIRATORY: Clear to auscultation. Breath sounds equal bilaterally. No wheezes , rales, or rhonchi. GASTROINTESTINAL: Abdomen soft, non-tender, nondistended. No hepato-splenomegaly , or palpable masses. No guarding. 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 Adequate muscle mass. Extremities: Edema and chronic venous stasis of the left lower extremity. NEUROLOGICAL: Awake and alert. Cranial nerves II through XII intact. Motor and sensory grossly within normal limits. Five out of 5 muscle strength in all muscle groups. Normal speech. Laboratory Laboratory Tests Test 10/14/17 12:04 10/15/17 05:25 White Blood Count 6.2 7.1 Red Blood Count 4.18 3.91 Hemoglobin 13.4 12.6 Hematocrit 38.2 36.5 Mean Corpuscular Volume 91.3 93.2 Mean Corpuscular Hemoglobin 31.9 32.1 Mean Corpuscular Hemoglobin Concent 35.0 34.4 Red Cell Distribution Width 14.3 14.2 Platelet Count 208 167 Mean Platelet Volume 7.7 8.5 Neutrophils (%) (Auto) 70.9 83.3 Lymphocytes (%) (Auto) 11.0 5.1 Monocytes (%) (Auto) 15.4 10.6 Eosinophils (%) (Auto) 1.8 0.6 Basophils (%) (Auto) 0.9 0.4 Neutrophils # (Auto) 4.4 5.9 Lymphocytes # (Auto) 0.7 0.4 Monocytes # (Auto) 1.0 0.8 Eosinophils # (Auto) 0.1 0.0 Basophils # (Auto) 0.1 0.0 CBC Comment DIFF FINAL DIFF FINAL Differential Comment Prothrombin Time 11.3 Prothromb Time International Ratio 1.1 Activated Partial Thromboplast Time 28.8 Blood Urea Nitrogen 8 8 Creatinine 0.51 0.51 Random Glucose 111 99 Calcium Level 9.0 9.1 Magnesium Level 1.5 Sodium Level 138 136 Potassium Level 3.4 3.9 Chloride Level 106 105 Carbon Dioxide Level 23.6 23.9 Anion Gap 8 7 Estimat Glomerular Filtration Rate 166 166 Total Creatine Kinase 63 Troponin I LESS THAN 0.02 Free Thyroxine 3.20 Free Triiodothyronine (T3) pg/dL 7.21 Thyroid Stimulating Hormone 3rd Gen LESS THAN 0.005 Total Protein 7.0 Albumin 3.2 Alkaline Phosphatase 79 Aspartate Amino Transf (AST/SGOT) 55 Alanine Aminotransferase (ALT/SGPT) 42 Total Bilirubin 0.6 Result Diagram: 10/15/17 0525 10/15/[address] angiogram of the thorax dated 10/14/2017: Conclusion: 1. No pulmonary embolus or acute infiltrate. 2. Isolated 8-9 mm nodule in the perifissural distribution of the right upper lobe. Recommend follow-up CT scan. 3. Probable pleural parenchymal scarring laterally in the right lower lobe. Ultrasound Doppler studies of the left lower extremity: Conclusion: Negative examination, no sonographic or Doppler findings of deep venous thrombosis. Assessment and Plan Assessment and Plan Mr. Boyer is a 61-year-old male well known to me from my outpatient practice. He was diagnosed in June 2017 with metastatic non-small cell carcinoma of the lung with histologic characteristics most consistent with adenosquamous carcinoma. The primary tumor is a small lesion involving the right lung, he has extensive bony metastatic disease burden to the left humerus which has been treated with open reduction and internal fixation as well as palliative radiation. The patient's disease is strongly positive for PDL 1 expression with a greater than 90% expression on IHC. This patient has been on palliative immunotherapy in the first-line setting with Keytruda he has received 2 doses at 200 mg IV every 3 weeks thus far. He has also received palliative radiation to the left humerus. After his first dose of Keytruda he did develop symptoms of diarrhea, this was a grade 1 toxicity and he was recommended conservative management. He now presents the hospital with left leg swelling, palpitations and worsening diarrhea. He was found to have new onset atrial fibrillation, hyper thyroidism and what he describes as up to 10 loose watery bowel movements a day. He has been initiated on beta-blockers for management of hyperthyroidism as well as methimazole. 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 Plan: 1. Hyperthyroidism: Patient has been appropriately initiated on methimazole and beta blockers. 2. Atrial fibrillation: This is a new diagnosis, this may be completely secondary to his new onset hyperthyroidism. Await echocardiogram results, the patient may benefit from short-term anticoagulation for primary stroke prophylaxis. 3. Watery diarrhea: Obtain C. 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 I have initiated oral prednisone 40 mg once daily which is the appropriate treatment at this time for Keytruda associated colitis. 4. Metastatic adenosquamous carcinoma of the lung: Immunotherapy is on hold until his hyperthyroidism settles down and until his colitis settles down. Unfortunately, though immunotherapeutic agents are typically well tolerated the often do result in endocrinopathies which may include hyper or hypo thyroidism, adrenocortical insufficiency and also commonly associated colitis which can become severe and potentially life-threatening if not adequately treated. Jeff Espinoza MD Oct 15, 2017 08:07
--- NOTE | 2017-10-15 08:54 | HHI.PR ---
Subjective Remarks This is a pleasant 61 y/o Male with history of Metastatic Adenosquamous Carcinoma of the Lung, treated with Keytruda, resents for evaluation of left lower extremity edema. Symptoms started 1 week ago. The swelling has worsened this is what prompted evaluation. He reports associated pain in the left calf which is a tightness and is worse when walking. He reports that he has had some mild dyspnea for the past 2 days which she relates to nasal congestion. Diarrhea for the last three weeks. Seen by customer experience specialist, he has Bony metastasis, brought in with new onset of Atrial fibrillation, Hyperthyroidism also new diagnosis, his Diarrhea may be related to Keytruda associated Colitis, 10/15: Seen in his bedroom and discussed with patient and his , nurse Present , continue with leg swelling specially on the left leg. Doppler negative for DVT , had also No pulmonary emboli, customer experience specialist following, will continue his present medications. Objective Vital Signs Date Time Temp Pulse Resp B/P (MAP) Pulse Ox O2 Delivery O2 Flow Rate FiO2 10/15/17 04:00 98.4 82 20 125/74 (91) 98 10/15/17 03:41 77 10/15/17 00:00 98.9 78 20 127/77 (94) 95 10/15/17 00:00 Room Air 10/14/17 23:42 93 10/14/17 20:00 Room Air 10/14/17 20:00 98.7 92 20 116/68 (84) 100 10/14/17 19:46 60 10/14/17 16:00 98.1 105 16 123/57 (79) 100 10/14/17 15:48 10/14/17 14:00 81 22 154/80 (104) 95 Room Air 10/14/17 11:58 85 22 149/74 (99) 98 Room Air 10/14/17 11:45 98.3 110 20 209/79 (122) 100 I/O 10/14/17 10/14/17 10/14/17 10/15/17 10/15/17 10/15/17 07:00 15:00 23:00 07:00 15:00 23:00 Intake Total 220 ml Output Total 400 ml Balance -400 ml 220 ml Intake Oral 220 ml Output Urine Total 400 ml # Voids 1 3 # Bowel Movements 1 Result Diagram: 10/15/17 0525 10/15/17 0525 Imaging Last Impressions Lower Extremity Ultrasound 10/14/17 1200 Signed Impressions: Service Date/Time: Saturday, October 14, 2017 12:53 - CONCLUSION: Negative exam. No sonographic or Doppler findings of deep venous thrombosis. Mahendra Cardenas MD CT Angiography 10/14/17 1200 Signed Impressions: Service Date/Time: Saturday, October 14, 2017 13:30 - CONCLUSION: 1. No pulmonary embolus or acute infiltrate. 2. Isolated 8-9 mm nodule in the perifissural distribution of the right upper lobe. Recommend followup CT scan of the chest in 6 months to ensure stability. 3. Probable pleural-parenchymal scarring laterally in the right lower lobe. Mahendra Cardenas MD Procedures None Other Results Laboratory Tests Test 10/14/17 12:04 10/15/17 05:25 Prothrombin Time 11.3 SEC Prothromb Time International Ratio 1.1 RATIO Activated Partial Thromboplast Time 28.8 SEC Blood Urea Nitrogen 8 MG/DL 8 MG/DL Creatinine 0.51 MG/DL 0.51 MG/DL Random Glucose 111 MG/DL 99 MG/DL Calcium Level 9.0 MG/DL 9.1 MG/DL Magnesium Level 1.5 MG/DL Sodium Level 138 MEQ/L 136 MEQ/L Potassium Level 3.4 MEQ/L 3.9 MEQ/L Chloride Level 106 MEQ/L 105 MEQ/L Carbon Dioxide Level 23.6 MEQ/L 23.9 MEQ/L Total Creatine Kinase 63 U/L Troponin I LESS THAN 0.02 NG/ML Free Thyroxine 3.20 NG/DL Free Triiodothyronine (T3) pg/dL 7.21 PG/ML Thyroid Stimulating Hormone 3rd Gen LESS THAN 0.005 uIU/ML White Blood Count 7.1 TH/MM3 Red Blood Count 3.91 MIL/MM3 Hemoglobin 12.6 GM/DL Hematocrit 36.5 % Mean Corpuscular Volume 93.2 FL Mean Corpuscular Hemoglobin 32.1 PG Mean Corpuscular Hemoglobin Concent 34.4 % Red Cell Distribution Width 14.2 % Platelet Count 167 TH/MM3 Mean Platelet Volume 8.5 FL Neutrophils (%) (Auto) 83.3 % Lymphocytes (%) (Auto) 5.1 % Monocytes (%) (Auto) 10.6 % Eosinophils (%) (Auto) 0.6 % Basophils (%) (Auto) 0.4 % Neutrophils # (Auto) 5.9 TH/MM3 Lymphocytes # (Auto) 0.4 TH/MM3 Monocytes # (Auto) 0.8 TH/MM3 Eosinophils # (Auto) 0.0 TH/MM3 Basophils # (Auto) 0.0 TH/MM3 CBC Comment DIFF FINAL Differential Comment Total Protein 7.0 GM/DL Albumin 3.2 GM/DL Alkaline Phosphatase 79 U/L Aspartate Amino Transf (AST/SGOT) 55 U/L Alanine Aminotransferase (ALT/SGPT) 42 U/L Total Bilirubin 0.6 MG/DL Anion Gap 7 MEQ/L Estimat Glomerular Filtration Rate 166 ML/MIN Objective Remarks GENERAL: No acute distress. SKIN: No rashes, ecchymoses or lesions. Cool and dry. HEAD: Atraumatic. Normocephalic. No temporal or scalp tenderness. EYES: Pupils equal round and reactive. Extraocular motions intact. No scleral icterus. No injection or drainage. ENT: Nose without bleeding, purulent drainage or septal hematoma. Throat without erythema, tonsillar hypertrophy or exudate. Uvula midline. Airway patent. NECK: Trachea midline. No JVD or lymphadenopathy. Supple, nontender, no meningeal signs. CARDIOVASCULAR: Irregular rate and rhythm without murmurs, gallops, or rubs. RESPIRATORY: Clear to auscultation. Breath sounds equal bilaterally. No wheezes , rales, or rhonchi. GASTROINTESTINAL: Abdomen soft, non-tender, nondistended. No hepato-splenomegaly , or palpable masses. No guarding. MUSCULOSKELETAL: Extremities without clubbing, cyanosis, or edema. No joint tenderness, effusion, or edema noted. No calf tenderness. Negative Homans sign bilaterally. NEUROLOGICAL: Awake and alert. Cranial nerves II through XII intact. Motor and sensory grossly within normal limits. Five out of 5 muscle strength in all muscle groups. Normal speech. Medications and IVs Laboratory Tests Test 10/14/17 12:04 10/15/17 05:25 Prothrombin Time 11.3 SEC Prothromb Time International Ratio 1.1 RATIO Activated Partial Thromboplast Time 28.8 SEC Blood Urea Nitrogen 8 MG/DL 8 MG/DL Creatinine 0.51 MG/DL 0.51 MG/DL Random Glucose 111 MG/DL 99 MG/DL Calcium Level 9.0 MG/DL 9.1 MG/DL Magnesium Level 1.5 MG/DL Sodium Level 138 MEQ/L 136 MEQ/L Potassium Level 3.4 MEQ/L 3.9 MEQ/L Chloride Level 106 MEQ/L 105 MEQ/L Carbon Dioxide Level 23.6 MEQ/L 23.9 MEQ/L Total Creatine Kinase 63 U/L Troponin I LESS THAN 0.02 NG/ML Free Thyroxine 3.20 NG/DL Free Triiodothyronine (T3) pg/dL 7.21 PG/ML Thyroid Stimulating Hormone 3rd Gen LESS THAN 0.005 uIU/ML White Blood Count 7.1 TH/MM3 Red Blood Count 3.91 MIL/MM3 Hemoglobin 12.6 GM/DL Hematocrit 36.5 % Mean Corpuscular Volume 93.2 FL Mean Corpuscular Hemoglobin 32.1 PG Mean Corpuscular Hemoglobin Concent 34.4 % Red Cell Distribution Width 14.2 % Platelet Count 167 TH/MM3 Mean Platelet Volume 8.5 FL Neutrophils (%) (Auto) 83.3 % Lymphocytes (%) (Auto) 5.1 % Monocytes (%) (Auto) 10.6 % Eosinophils (%) (Auto) 0.6 % Basophils (%) (Auto) 0.4 % Neutrophils # (Auto) 5.9 TH/MM3 Lymphocytes # (Auto) 0.4 TH/MM3 Monocytes # (Auto) 0.8 TH/MM3 Eosinophils # (Auto) 0.0 TH/MM3 Basophils # (Auto) 0.0 TH/MM3 CBC Comment DIFF FINAL Differential Comment Total Protein 7.0 GM/DL Albumin 3.2 GM/DL Alkaline Phosphatase 79 U/L Aspartate Amino Transf (AST/SGOT) 55 U/L Alanine Aminotransferase (ALT/SGPT) 42 U/L Total Bilirubin 0.6 MG/DL Anion Gap 7 MEQ/L Estimat Glomerular Filtration Rate 166 ML/MIN A/P Assessment and Plan 1. 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 new onset of Atrial Fibrillation at this time on Beta blockers and heart rate controlled. needs Echocardiogram. also recommended by Oncology for anticoagulation. Secondary to Keytruda as per customer experience specialist. continue Telemetry. 3. Hyperthyroidism to continue Beta blockers and methimazole 4. Lower extremity edema, Negative Lower extremity US and CTA no pulmonary emboli. 5. 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 6. Hypomagnesemia replaced and following. DVT prophylaxis with Lovenox. Discharge Planning Once cleared by customer experience specialist Pepe Prabhakar MD Oct 15, 2017 08:54
[2017-10-15] MEDS: DOCUSATE SODIUM 50 MG/SENNA 8.6 MG TAB PO SCH ×2 (09:00→20:35)
[2017-10-15] MEDS: PROPRANOLOL HCL 10 MG TAB PO SCH ×2 (09:33→17:20)
[2017-10-15] MEDS: SODIUM CHLORIDE 0.9% FLUSH 10 ML FLUSH IV FLUSH SCH ×2 (09:34→20:34)
[2017-10-15] MEDS: METHIMAZOLE 5 MG TAB PO SCH ×2 (09:34→20:34)
[2017-10-15] MEDS: MAGNESIUM OXIDE 400 MG TAB PO SCH (09:34)
[2017-10-15] MEDS: predniSONE 20 MG TAB PO SCH (09:43)
[2017-10-15 09:50] LABS: MAGNESIUM 1.5 MG/DL (1.5-2.5); PHOSPHORUS 2.8 MG/DL (2.5-4.9)
[2017-10-15] MEDS: SODIUM CHLOR 0.9% 1000 ML INJ 1,000 ML IV SCH ×2 (10:50→20:34)
[2017-10-15] MEDS: MAGNESIUM SULFATE 1 GM PREMIX 100 ML IV SCH ×2 (12:54→14:41)
[2017-10-15] MEDS: SUCRALFATE 1 GM/10 ML CUP PO SCH ×2 (17:20→20:34)
[2017-10-15] MEDS: ENOXAPARIN SODIUM 40 MG/0.4 ML SYRINGE SQ SCH (17:20)
[2017-10-16] VITALS: PULSE 60
[2017-10-16] MEDS: PROPRANOLOL HCL 10 MG TAB PO SCH ×3 (00:31→15:10)
[2017-10-16 03:45] VITALS: BP 132/61; PULSE 61; RESP 16; TEMP 98; O2SAT 97
[2017-10-16 04:00] VITALS: PULSE 60
[2017-10-16 05:47] LABS: BICARBONATE 26.1 MEQ/L (21.0-32.0); CALCIUM 8.6 MG/DL (8.5-10.1); CREATININE 0.47 MG/DL (0.60-1.30); MAGNESIUM 1.7 MG/DL (1.5-2.5)
[2017-10-16] MEDS: SODIUM CHLOR 0.9% 1000 ML INJ 1,000 ML IV SCH (06:50)
[2017-10-16] MEDS: SODIUM CHLORIDE 0.9% FLUSH 10 ML FLUSH IV FLUSH SCH (07:27)
[2017-10-16 08:00] VITALS: BP 137/68; PULSE 56; RESP 18; TEMP 96.4; O2SAT 96
--- NOTE | 2017-10-16 08:17 | ECHRPT ---
Indication: ATRIAL FIB/FLUTTER CONCLUSIONS Normal left ventricular size. Wall thickness is measured at the upper limits of normal. The left ventricular systolic function is normal with an estimated ejection fraction in the range of 55-60%. No definite regional wall motiona abnormalities. The left atrial size is mildly dilated. The right atrial size is mildly dilated. There is mild tricuspid valve regurgitation. The estimated pulmonary arterial pressure is 45 mmHg. BP: / HR: Rhythm: Atrial fibrillation MEASUREMENTS (Male / Female) Normal Values Technical Quality:Very technically difficult study 2D ECHO LV Diastolic Diameter PLAX 5.1 cm 4.2 - 5.9 / 3.9 - 5.3 cm LV Systolic Diameter PLAX 3.9 cm IVS Diastolic Thickness 1.2 cm 0.6 - 1.0 / 0.6 - 0.9 cm LVPW Diastolic Thickness 1.2 cm 0.6 - 1.0 / 0.6 - 0.9 cm LV Relative Wall Thickness 0.5 RV Internal Dim ED PLAX 3.1 cm LVOT Diameter 2.4 cm Aortic Root Diameter 3.2 cm LA Systolic Diameter LX 4.3 cm 3.0 - 4.0 / 2.7 - 3.8 cm M-MODE AV Cusp Separation MM 1.9 cm DOPPLER AV Peak Velocity 143.0 cm/s AV Peak Gradient 8.2 mmHg AV Mean Gradient 4.5 mmHg AV Velocity Time Integral 26.6 cm LVOT Peak Velocity 93.3 cm/s LVOT Peak Gradient 3.5 mmHg LVOT Velocity Time Integral 18.3 cm AV Area Cont Eq vti 3.1 cm AV Area Cont Eq pk 3.0 cm LV E' Lateral Velocity 15.4 cm/s LV E' Septal Velocity 14.0 cm/s TR Peak Velocity 337.0 cm/s TR Peak Gradient 45.4 mmHg Right Atrial Pressure 10.0 mmHg Pulmonary Artery Systolic Pressu 55.4 mmHg Right Ventricular Systolic Press 55.4 mmHg PV Peak Velocity 97.9 cm/s PV Peak Gradient 3.8 mmHg FINDINGS LEFT VENTRICLE Normal left ventricular size. Wall thickness is measured at the upper limits of normal. The left ventricular systolic function is normal with an estimated ejection fraction in the range of 55-60%. No definite regional wall motiona abnormalities. RIGHT VENTRICLE Normal right ventricular size and systolic function. LEFT ATRIUM The left atrial size is mildly dilated. RIGHT ATRIUM The right atrial size is mildly dilated. ATRIAL SEPTUM No atrial level shunt is demonstrated by color flow Doppler interrogation. AORTA The aortic root and proximal ascending aorta are not well visualized. MITRAL VALVE Trace mitral valve regurgitation. AORTIC VALVE Trileaflet aortic valve. No aortic valve stenosis or regurgitation. TRICUSPID VALVE There is mild tricuspid valve regurgitation. The estimated pulmonary arterial pressure is 45 mmHg. PULMONARY VALVE No pulmonary valve regurgitation or stenosis. VESSELS The inferior vena cava is normal in size. Kevan Julien MD (Electronically Signed) Final Date:16 October 2017 08:16
[2017-10-16] MEDS: MAGNESIUM OXIDE 400 MG TAB PO SCH (08:27)
[2017-10-16] MEDS: DOCUSATE SODIUM 50 MG/SENNA 8.6 MG TAB PO SCH (08:27)
[2017-10-16] MEDS: predniSONE 20 MG TAB PO SCH (08:27)
[2017-10-16] MEDS: METHIMAZOLE 5 MG TAB PO SCH (08:27)
[2017-10-16] MEDS: SUCRALFATE 1 GM/10 ML CUP PO SCH ×2 (08:27→11:54)
--- NOTE | 2017-10-16 08:27 | PD.ONC.PN ---
Subjective Subjective Remarks Patient seen and examined, vital signs, labs and medications reviewed, rhythm strip on engine monitor also reviewed; he remains in atrial fibrillation. Echocardiogram was sent yesterday, the results are pending. Subjectively; the patient reports his diarrhea is improved, stools more formed. He tells me he was unable to sleep last night because he was very anxious. He denies other acute complaints. His is at bedside this morning. Objective Data Date Time Temp Pulse Resp B/P (MAP) Pulse Ox O2 Delivery O2 Flow Rate FiO2 10/16/17 04:00 60 10/16/17 04:00 Room Air 10/16/17 03:45 98.0 61 16 132/61 (84) 97 10/16/17 00:00 Room Air 10/16/17 00:00 60 10/15/17 23:49 98.7 65 16 151/73 (99) 96 10/15/17 20:25 98.6 85 16 118/73 (88) 96 10/15/17 20:00 72 10/15/17 20:00 Room Air 10/15/17 15:43 68 10/15/17 15:31 98.1 71 20 134/62 (86) 100 10/15/17 12:00 98.1 73 20 139/65 (89) 95 10/16/17 10/16/17 10/16/17 07:00 15:00 23:00 Intake Total 240 ml Output Total 250 ml Balance -10 ml Result Diagram: 10/15/17 0525 10/16/17 0520 Laboratory Results Laboratory Tests Test 10/16/17 01:10 10/16/17 05:20 Stool C. difficile Toxin (PCR) NEGATIVE Stl C. difficile Toxin Epiderm 027 PRESUMPTIVE NEGATIVE Blood Urea Nitrogen 11 MG/DL Creatinine 0.47 MG/DL Random Glucose 105 MG/DL Calcium Level 8.6 MG/DL Magnesium Level 1.7 MG/DL Sodium Level 140 MEQ/L Potassium Level 3.2 MEQ/L Chloride Level 107 MEQ/L Carbon Dioxide Level 26.1 MEQ/L Anion Gap 7 MEQ/L Estimat Glomerular Filtration Rate 183 ML/MIN Administered Medications Medications (Trade) Dose Ordered Sig/Justice Route PRN Reason Start Time Stop Time Status Last Admin Dose Admin Amlodipine Besylate (Norvasc) 10 mg DAILY PO 10/15/17 09:00 10/15/17 09:33 Propranolol HCl (Inderal) 10 mg Q8H PO 10/14/17 16:00 10/16/17 00:31 Methimazole (Tapazole) 5 mg Q12HR PO 10/14/17 21:00 10/15/17 20:34 Sodium Chloride 1,000 ml @ 100 mls/hr Q10H IV 10/14/17 14:50 10/16/17 06:50 Sodium Chloride (NS Flush) 2 ml UNSCH PRN IV FLUSH FLUSH AFTER USING IV ACCESS 10/14/17 15:00 10/14/17 23:29 Sodium Chloride (NS Flush) 2 ml BID IV FLUSH 10/14/17 21:00 10/16/17 07:27 Ondansetron HCl (Zofran Inj) 4 mg Q6H PRN IVP NAUSEA OR VOMITING 10/14/17 15:00 10/14/17 23:29 Enoxaparin Sodium (Lovenox Inj) 40 mg Q24H SQ 10/14/17 16:00 10/15/17 17:20 Magnesium Oxide (Mag-Ox) 400 mg DAILY PO 10/15/17 09:00 10/18/17 08:59 10/15/17 09:34 Prednisone (Deltasone) 40 mg DAILY PO 10/15/17 09:00 10/15/17 09:43 Sucralfate (Carafate Liq) 1 gm ACHS PO 10/15/17 17:00 10/15/17 20:34 Objective Remarks GENERAL: Middle-aged male, sitting up on a bedside chair, he appears to be no acute distress and has a pleasant disposition. SKIN: Changes consistent with scleroderma. HEAD: Atraumatic. Normocephalic. No temporal or scalp tenderness. EYES: Pupils equal round and reactive. Extraocular motions intact. No scleral icterus. No injection or drainage. ENT: Nose without bleeding, purulent drainage or septal hematoma. Throat without erythema, tonsillar hypertrophy or exudate. Uvula midline. Airway patent. NECK: Trachea midline. No JVD or lymphadenopathy. Supple, nontender, no meningeal signs. CARDIOVASCULAR: Irregular rhythm, he does not have increased heart rate, S1-S2 no obvious murmurs rubs gallops. RESPIRATORY: Clear to auscultation. Breath sounds equal bilaterally. No wheezes , rales, or rhonchi. GASTROINTESTINAL: Abdomen soft, non-tender, nondistended. No hepato-splenomegaly , or palpable masses. No guarding. 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 Adequate muscle mass. Extremities: Edema and chronic venous stasis of the left lower extremity. NEUROLOGICAL: Awake and alert. Cranial nerves II through XII intact. Motor and sensory grossly within normal limits. Five out of 5 muscle strength in all muscle groups. Normal speech. Assessment/Plan Assessment Mr. Boyer is a 61-year-old male well known to me from my outpatient practice. He was diagnosed in June 2017 with metastatic non-small cell carcinoma of the lung with histologic characteristics most consistent with adenosquamous carcinoma. The primary tumor is a small lesion involving the right lung, he has extensive bony metastatic disease burden to the left humerus which has been treated with open reduction and internal fixation as well as palliative radiation. The patient's disease is strongly positive for PDL 1 expression with a greater than 90% expression on IHC. This patient has been on palliative immunotherapy in the first-line setting with Keytruda he has received 2 doses at 200 mg IV every 3 weeks thus far. He has also received palliative radiation to the left humerus. After his first dose of Keytruda he did develop symptoms of diarrhea, this was a grade 1 toxicity and he was recommended conservative management. He now presents the hospital with left leg swelling, palpitations and worsening diarrhea. He was found to have new onset atrial fibrillation, hyper thyroidism and what he describes as up to 10 loose watery bowel movements a day. He has been initiated on beta-blockers for management of hyperthyroidism as well as methimazole. 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 Plan 1. Keytruda associated enterocolitis: Continue oral prednisone at 40 mg once daily, I would advise he be discharged home on this dose. Typically a slow taper over 4-6 weeks is recommended to avoid rebound colitis. I will taper him gradually in the outpatient setting. 2. 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 3. Atrial fibrillation: Likely related to hyper thyroidism, he is already on a beta-arlette, he will benefit from anticoagulation for stroke prophylaxis. I therefore recommended Eliquis 5 mg p.o. twice daily. Outpatient EKG will be obtained to reassess his cardiac rhythm in the upcoming weeks. 4. Metastatic adeno-squamous carcinoma of the lung: He had been on palliative immunotherapy with Keytruda given the high PDL 1 expression on his disease. Keytruda will be on hold until his endocrinopathy and colitis have improved. Disposition: Clear for discharge from oncology standpoint. I will see him in clinic next week. Case discussed with the patient, his and the attending physician. Jeff Espinoza MD Oct 16, 2017 08:27
[2017-10-16 11:06] VITALS: O2SAT 96
[2017-10-16 12:00] VITALS: BP 141/67; PULSE 69; RESP 18; TEMP 96.6; O2SAT 97
--- NOTE | 2017-10-16 13:28 | HHI.PR ---
Subjective Remarks seen with at bedside patient sitting on side of the bed feeling better states leg swelling improved no chest pain up and ambulated with a cane- patient has one at home diarrhea improved telemetry- in a fib- rate controlled Objective Vitals Vital Signs Date Time Temp Pulse Resp B/P (MAP) Pulse Ox O2 Delivery O2 Flow Rate FiO2 10/16/17 12:00 96.6 69 18 141/67 (91) 97 10/16/17 11:06 96 21 10/16/17 08:00 96.4 56 18 137/68 (91) 96 10/16/17 04:00 60 10/16/17 04:00 Room Air 10/16/17 03:45 98.0 61 16 132/61 (84) 97 10/16/17 00:00 Room Air 10/16/17 00:00 60 10/15/17 23:49 98.7 65 16 151/73 (99) 96 10/15/17 20:25 98.6 85 16 118/73 (88) 96 10/15/17 20:00 72 10/15/17 20:00 Room Air 10/15/17 15:43 68 10/15/17 15:31 98.1 71 20 134/62 (86) 100 I/O 10/15/17 10/15/17 10/15/17 10/16/17 10/16/17 10/16/17 07:00 15:00 23:00 07:00 15:00 23:00 Intake Total 220 ml 1100 ml 1100 ml 240 ml Output Total 250 ml Balance 220 ml 1100 ml 1100 ml -10 ml Intake Oral 220 ml 240 ml IV Total 1100 ml 1100 ml Output Urine Total 250 ml # Voids 3 # Bowel Movements 1 1 Result Diagram: 10/15/17 0525 10/16/17 0520 Imaging Last Impressions Lower Extremity Ultrasound 10/14/17 1200 Signed Impressions: Service Date/Time: Saturday, October 14, 2017 12:53 - CONCLUSION: Negative exam. No sonographic or Doppler findings of deep venous thrombosis. Mahendra Cardenas MD CT Angiography 10/14/17 1200 Signed Impressions: Service Date/Time: Saturday, October 14, 2017 13:30 - CONCLUSION: 1. No pulmonary embolus or acute infiltrate. 2. Isolated 8-9 mm nodule in the perifissural distribution of the right upper lobe. Recommend followup CT scan of the chest in 6 months to ensure stability. 3. Probable pleural-parenchymal scarring laterally in the right lower lobe. 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 Start eliquis 5 mg po bid. echo unremarkable Keytruda associated enterocolitis- continue on Prednisone 40 mg po daily. d/w Dr. Espinoza- will DC on this dose and he will do gradual taper as OP Hyperthyroidism to continue Beta blockers and methimazole . d/w hiom OP referral to an labeler Lower extremity edema, Negative Lower extremity US and CTA no pulmonary emboli. Hypokalemia- replace po. home with 10 meq po KCL bid. recheck BMP as OP d/w patient and at bedside Fabián Oreilly MD Oct 16, 2017 13:28
[2017-10-16] MEDS ORDERED: APIXABAN 5 MG TABLET PO SCH (13:30)
[2017-10-16] MEDS ORDERED: POTASSIUM BICARBONATE 25 MEQ EFFERVESCENT TAB PO ONE (13:45)
[2017-10-16] MEDS ORDERED: PRED20 PO ×2 (14:00→14:07)
[2017-10-16] MEDS ORDERED: APIX5TAB PO (14:00)
[2017-10-16] MEDS ORDERED: METH5 PO (14:00)
[2017-10-16] MEDS ORDERED: PROP10TA6 PO (14:01)
[2017-10-16] MEDS ORDERED: PANT20 PO (14:07)
[2017-10-16] MEDS ORDERED: POTA10CA PO (14:09)
--- NOTE | 2017-10-16 14:14 | HHI.DS ---
Discharge Summary Admission Date Oct 14, 2017 at 14:42 Discharge Date: Oct 16, 2017 Admitting Diagnosis New onset atrial fibrillation, thyrotoxicosis (1) Keytruda enterocolitis Diagnosis: Principal Status: Acute (2) Thyrotoxicosis ICD Code: E05.90 - Thyrotoxicosis, unspecified without thyrotoxic crisis or storm Diagnosis: Principal Status: Acute (3) Hypokalemia ICD Code: E87.6 - Hypokalemia Diagnosis: Secondary Status: Acute Procedures none Brief History - From Admission The patient is a very pleasant unfortunate 61-year-old male with history of metastatic adenosquamous carcinoma of the lung, currently treated with Keytruda , presents for evaluation of left lower extremity edema. Symptoms started 1 week ago. The swelling has worsened this is what prompted evaluation. He reports associated pain in the left calf which is a tightness and is worse when walking. He reports that he has had some mild dyspnea for the past 2 days which she relates to nasal congestion. He denies chest pain, abdominal pain, nausea or vomiting, diaphoresis, dizziness, lightheadedness. No history of DVT or PE. He has no other complaints at this time. Main complaint is swelling of his legs, left leg worse x 1 week worsening. Also with sob No palpitations, cp, diaphoresis. Follows with Dr. Espinoza hematology oncology as outpatient and has an appointment with him tomorrow CBC/BMP: 10/15/17 0525 10/16/17 0520 Significant Findings Laboratory Tests Test 10/14/17 12:04 10/15/17 05:25 10/16/17 01:10 10/16/17 05:20 Red Blood Count 4.18 MIL/MM3 (4.50-5.90) 3.91 MIL/MM3 (4.50-5.90) Hematocrit 38.2 % (39.0-51.0) 36.5 % (39.0-51.0) Neutrophils (%) (Auto) 70.9 % (16.0-70.0) 83.3 % (16.0-70.0) Monocytes (%) (Auto) 15.4 % (0.0-8.0) 10.6 % (0.0-8.0) Lymphocytes # (Auto) 0.7 TH/MM3 (1.0-4.8) 0.4 TH/MM3 (1.0-4.8) Monocytes # (Auto) 1.0 TH/MM3 (0-0.9) Creatinine 0.51 MG/DL (0.60-1.30) 0.51 MG/DL (0.60-1.30) 0.47 MG/DL (0.60-1.30) Random Glucose 111 MG/DL (74-106) Potassium Level 3.4 MEQ/L (3.5-5.1) 3.2 MEQ/L (3.5-5.1) Troponin I LESS THAN 0.02 NG/ML Free Thyroxine 3.20 NG/DL (0.76-1.46) Free Triiodothyronine (T3) pg/dL 7.21 PG/ML (2.18-3.98) Thyroid Stimulating Hormone 3rd Gen LESS THAN 0.005 uIU/ML Hemoglobin 12.6 GM/DL (13.0-17.0) Lymphocytes (%) (Auto) 5.1 % (9.0-44.0) Albumin 3.2 GM/DL (3.4-5.0) Aspartate Amino Transf (AST/SGOT) 55 U/L (15-37) Imaging Last Impressions Lower Extremity Ultrasound 10/14/17 1200 Signed Impressions: Service Date/Time: Saturday, October 14, 2017 12:53 - CONCLUSION: Negative exam. No sonographic or Doppler findings of deep venous thrombosis. Mahendra Cardenas MD CT Angiography 10/14/17 1200 Signed Impressions: Service Date/Time: Saturday, October 14, 2017 13:30 - CONCLUSION: 1. No pulmonary embolus or acute infiltrate. 2. Isolated 8-9 mm nodule in the perifissural distribution of the right upper lobe. Recommend followup CT scan of the chest in 6 months to ensure stability. 3. Probable pleural-parenchymal scarring laterally in the right lower lobe. 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 Start eliquis 5 mg po bid. Echo unremarkable Keytruda associated enterocolitis- continue on Prednisone 40 mg po daily. d/w Dr. Espinoza- will DC on this dose and he will do gradual taper as OP Thyrotoxicosis. continue Beta blockers and methimazole . d/w him OP referral to an shipping and receiving through [facility]a PCP Lower extremity edema, Negative Lower extremity US and CTA no pulmonary emboli. Hypokalemia- replace po. home with 10 meq po KCL bid. recheck BMP as OP d/w patient and at bedside Pt Condition on Discharge: Stable Discharge Disposition: Discharge Home Discharge Time: <= 30 minutes Discharge Instructions DIET: Follow Instructions for: Heart Healthy Diet Speech Therapy-Diet Recommends: Regular Activities you can perform: Weight Bearing as Linh Follow up Referrals: Oncology - 1 Week with Caryn PCP Follow-up - 10/19/17 with Lexi New Orders: BASIC METABOLIC PROF - 10/18/17 New Medications: Potassium Chloride ER (Potassium Chloride ER) 10 Meq Cap 10 MEQ PO BID for Electrolyte Replacement for 5 Days, #10 CAP 0 Refills Apixaban (Eliquis) 5 Mg Tab 5 MG PO BID for afib for 30 Days, #60 TAB 3 Refills Methimazole (Tapazole) 5 Mg Tab 5 MG PO Q12HR for hypethyroidism for 30 Days, TAB Pantoprazole (Protonix) 20 Mg Tab 20 MG PO DAILY for GI pro for 14 Days, #14 TAB Prednisone (Prednisone) 20 Mg Tab 40 MG PO DAILY for colitis for 7 Days, #14 TAB Propranolol (Propranolol) 10 Mg Tab 10 MG PO Q8H for afib for 30 Days, #90 TAB 1 Refill Continued Medications: Amlodipine (Amlodipine) 10 Mg Tab 10 MG PO DAILY for Blood Pressure Management, #30 TAB 0 Refills Fabián Oreilly MD Oct 16, 2017 14:14
[2017-10-16] MEDS ORDERED: PANTOPRAZOLE SOD 20 MG DELAYED RELEASE TAB PO SCH (14:15)
== END 2017-10-16 16:12 | disposition home or self-care (01) | DRG 644 ==
LOC: NEPE 11:40 → NEDA 14:42 → N04A 15:44
PROVIDERS: ADMIT Internal Medicine; ATTEND Internal Medicine
DX: E05.80 Other thyrotoxicosis without thyrotoxic crisis or storm (principal); C79.51 Secondary malignant neoplasm of bone; M34.9 Systemic sclerosis, unspecified; K52.1 Toxic gastroenteritis and colitis; I48.91 Unspecified atrial fibrillation; C34.01 Malignant neoplasm of right main bronchus; E83.42 Hypomagnesemia; J44.9 Chronic obstructive pulmonary disease, unspecified; I10 Essential (primary) hypertension; I87.8 Other specified disorders of veins; R60.0 Localized edema; E87.6 Hypokalemia; I73.00 Raynaud's syndrome without gangrene; M19.90 Unspecified osteoarthritis, unspecified site; T45.1X5A Adverse effect of antineoplastic and immunosuppressive drugs, initial encounter; F17.210 Nicotine dependence, cigarettes, uncomplicated; Z82.41 Family history of sudden cardiac death; Z92.3 Personal history of irradiation
CPT/HCPCS: 71275; 80048; 80053; 82550; 83735; 84100; 84439; 84443; 84481; 84484; 85025; 85610; 85730; 87493; 93005; 93306; 93971; 96374; J1650; J2405; J3475; J7030; J7512; Q9967